=== PATIENT | female | born 1960 | race Caucasian/White ===

== ENCOUNTER → 2019-08-31 | Outpatient (REF) | payer BC | LOC: M LAB LCGH 11:16 | PROVIDERS: ATTEND Obstetrics & Gynecology | DX: Z12.4 Encounter for screening for malignant neoplasm of cervix (principal) | CPT/HCPCS: 87624; G0123 ==

== ENCOUNTER 2019-12-01 08:58 | Day surgery (SDC) | payer BC ==
[~2019-12-01] VITALS: Ht 162.6 cm; Wt 79.4 kg
[~2019-12-01 08:58] MED LIST: ADV100INH INH; ATEN50TA2 PO; BLAC540C3 PO; LEVO2TA PO; LIDOCAINE 2% INJ 100 MG/5 ML SDV (FOR ANES.) As Ordered ONE; LOSA100T50 PO; MULT-40 PO; NS 1,000 ML IV ONE; OMEP40CA97 PO; VENTAER INH; propofoL 200 MG/20 ML VIAL As Ordered ONE
[2019-12-01] MEDS ORDERED: propofoL 200 MG/20 ML VIAL As Ordered ONE (10:40)
--- NOTE | 2019-12-01 10:54 | ROOR ---
Patient Name: Erin Beth Procedure Date: 12/01/2019 10:27 AM Date of : 1960 Age: 59 Room: [facility] Gender: Female Note Status: Finalized Procedure: Colonoscopy Indications: Suspected diverticulosis of the colon Providers: DO Oscar Cifuentes MD: ONEYDA Kramer Requesting Provider: Medicines: Propofol per Anesthesia Complications: No immediate complications. Procedure: Pre-Anesthesia Assessment: - Prior to the procedure, a History and Physical was performed, and patient medications and allergies were reviewed. The patient is competent. The risks and benefits of the procedure and the sedation options and risks were discussed with the patient. All questions were answered and informed consent was obtained. Patient identification and proposed procedure were verified by the physician, the nurse, the anesthesiologist and the laboratory mechanical technician in the endoscopy suite. Mental Status Examination: alert and oriented. Airway Examination: normal oropharyngeal airway and neck mobility. Respiratory Examination: clear to auscultation. CV Examination: normal. Prophylactic Antibiotics: The patient does not require prophylactic antibiotics. Prior Anticoagulants: The patient has taken no previous anticoagulant or antiplatelet agents. ASA Grade Assessment: II - A patient with mild systemic disease. After reviewing the risks and benefits, the patient was deemed in satisfactory condition to undergo the procedure. The anesthesia plan was to use monitored anesthesia care (MAC). Immediately prior to administration of medications, the patient was re-assessed for adequacy to receive sedatives. The heart rate, respiratory rate, oxygen saturations, blood pressure, adequacy of pulmonary ventilation, and response to care were monitored throughout the procedure. The physical status of the patient was re-assessed after the procedure. The Colonoscope was introduced through the anus and advanced to the cecum, identified by appendiceal orifice and ileocecal valve. The colonoscopy was performed without difficulty. The patient tolerated the procedure well. Findings: A few small-mouthed diverticula were found in the sigmoid colon and ascending colon. Non-bleeding internal hemorrhoids were found during retroflexion. The hemorrhoids were Grade I (internal hemorrhoids that do not prolapse). The exam was otherwise without abnormality on direct and retroflexion views. Impression: - Diverticulosis in the sigmoid colon and in the ascending colon. - Non-bleeding internal hemorrhoids. - The examination was otherwise normal on direct and retroflexion views. - No specimens collected. Recommendation: - Patient has a contact number available for emergencies. The signs and symptoms of potential delayed complications were discussed with the patient. Return to normal activities tomorrow. Written discharge instructions were provided to the patient. - Repeat colonoscopy in 5-10 years for screening purposes. - Return to my office PRN. Juan Edwards DO 12/01/2019 10:53:53 AM Electronically signed by Juan Edwards DO Number of Addenda: 0 Note Initiated On: 12/01/2019 10:27 AM Estimated Blood Loss: Estimated blood loss: none.
[2019-12-01 11:28] VITALS: BP 160/70
== END 2019-12-01 11:32 | disposition home or self-care (01) ==
LOC: M OPP 08:58
PROVIDERS: ATTEND Surgery
DX: K64.0 First degree hemorrhoids (principal); K57.30 Diverticulosis of large intestine without perforation or abscess without bleeding; R10.32 Left lower quadrant pain; K82.8 Other specified diseases of gallbladder; I10 Essential (primary) hypertension; E03.9 Hypothyroidism, unspecified; Z79.899 Other long term (current) drug therapy; Z88.5 Allergy status to narcotic agent; Z91.040 Latex allergy status

== ENCOUNTER → 2020-11-15 | Outpatient (CLI) | payer BC ==
[~2020-11-15] MED LIST changes: -LIDOCAINE 2% INJ 100 MG/5 ML SDV (FOR ANES.) As Ordered ONE; -NS 1,000 ML IV ONE; +SYNT112T2 PO; -propofoL 200 MG/20 ML VIAL As Ordered ONE
== END ==
LOC: M LABSMTC 10:43
PROVIDERS: ATTEND Anesthesiology
DX: Z01.812 Encounter for preprocedural laboratory examination (principal); Z20.822 Contact with and (suspected) exposure to COVID-19

== ENCOUNTER 2020-11-20 07:34 | Day surgery (SDC) | payer BC ==
[~2020-11-20] VITALS: Ht 162.6 cm; Wt 80.6 kg
[~2020-11-20 07:34] MED LIST changes: +LR 1,000 ML IV ONE
[2020-11-20] MEDS ORDERED: fentaNYL 250 MCG/5 ML INJECTION (J3010) As Ordered ONE (07:56)
[2020-11-20] MEDS ORDERED: propofoL 200 MG/20 ML VIAL As Ordered ONE ×2 (07:56→10:01)
[2020-11-20] MEDS ORDERED: LIDOCAINE 2% 100MG/5ML SDV (FOR ANES.) As Ordered ONE (07:56)
[2020-11-20] MEDS ORDERED: MIDAZOLAM INJ 2MG/2ML VIAL (J2250 PER 1MG) As Ordered ONE (07:56)
[2020-11-20] MEDS ORDERED: ROCURONIUM BROMIDE 50 MG/5 ML VIAL As Ordered ONE (07:56)
[2020-11-20] MEDS ORDERED: dexameTHASONE 4 MG/ML 1ML VIAL (J1100 PER 1MG) As Ordered ONE (07:57)
[2020-11-20] MEDS ORDERED: ONDANSETRON 4MG/2ML VIAL As Ordered ONE (07:57)
[2020-11-20] MEDS ORDERED: KETOROLAC 60MG 2ML VIAL As Ordered ONE (07:57)
[2020-11-20] MEDS ORDERED: ACETAMINOPHEN 1000MG 100ML IV BTL (OFIRMEV) (J0131 PER 10MG) As Ordered ONE ×2 (08:10→09:19)
[2020-11-20] MEDS ORDERED: BUPIVACAINE/EPIN 0.25% 30 ML VIAL As Ordered ONE (08:48)
[2020-11-20] MEDS ORDERED: ePHEDrine SULFATE 25 MG/5 ML(5MG/ML) SYRINGE As Ordered ONE (09:18)
[2020-11-20] MEDS ORDERED: GLYCOPYRROLATE INJ 0.2 MG/ML 2 ML VIAL As Ordered ONE (09:23)
[2020-11-20] MEDS ORDERED: METOCLOPRAMIDE INJ 10MG/2ML VIAL (J2765 PER 1) As Ordered ONE (09:36)
[2020-11-20] MEDS ORDERED: SUGAMMADEX SODIUM 500 MG/5 ML VIAL (BRIDION) As Ordered ONE (09:51)
[2020-11-20] MEDS ORDERED: oxyCODONE 5MG TAB PO PRN (10:30)
[2020-11-20] MEDS ORDERED: fentaNYL 100 MCG/2 ML INJECTION (J3010) IV PRN (10:30)
[2020-11-20] MEDS ORDERED: LR 1,000 ML IV SCH (10:30)
[2020-11-20] MEDS ORDERED: ONDANSETRON 4MG/2ML VIAL IV PRN (10:30)
[2020-11-20] MEDS ORDERED: HYDROMORPHONE HCL 0.5 MG/ 0.5 ML SYRINGE (J1170 PER 1) IV PRN (10:30)
[2020-11-20] MEDS ORDERED: NORCO, ANEXSIA 5/325MG TABLET (HYDROcodone/ACETAMINOPHEN) PO PRN (10:35)
--- NOTE | 2020-11-20 10:58 | RO ---
OPERATIVE NOTE DATE OF OPERATION: 11/20/2020 PREOPERATIVE DIAGNOSIS: Biliary dyskinesia. POSTOPERATIVE DIAGNOSIS: Biliary dyskinesia. PROCEDURE: Robotic cholecystectomy. SURGEON: Juan Edwards DO MAINTENANCE TECH: Jalyn Mayer ANESTHESIA: General. EBL: 5 mL. COMPLICATIONS: None. INDICATIONS FOR PROCEDURE: The patient is a 60-year-old female who presents with right upper quadrant pain. She was found to have an abnormal HIDA with ejection fraction of 11%. Due to her symptoms and abnormal HIDA, recommendation was to proceed with robotic cholecystectomy. Risks and benefits of the procedure, not limited to but including bleeding, infection, hernia formation, damage to surrounding structures, and need for further surgery were discussed in detail with the patient. Informed consent was obtained and procedure was planned. PROCEDURE: The patient was brought back to operating room 7. After sufficient sedation, the abdomen was sterilely prepped and draped. Next, time out was done to confirm proper patient and proper procedure. Following that, an 8-mm incision was made in left upper quadrant, Veress needle was inserted, and the abdomen was insufflated to 15 mmHg. The Veress needle was then removed and an 8-mm Optiview port was used to gain access to the abdomen. Once the abdomen was entered, three more ports were placed, two in the right upper abdomen and one in the right upper quadrant. Next, the fundus of the gallbladder was elevated up towards the right shoulder. Cystic duct and cystic artery were carefully dissected free using a combination of blunt and sharp dissection. Once they were both clearly identified, they were both doubly clipped and cut. The gallbladder was then dissected free from the gallbladder fossa, placed intact inside of a 5-mm EndoCatch bag, and then brought out through the right lateral port site. Once the gallbladder was removed, the abdomen was desufflated. The skin incisions were closed with 4-0 Vicryl subcuticular sutures. The abdomen was cleaned and dried. Steri-Strips, 4 x 4, and tape were applied.
[2020-11-20 13:10] VITALS: BP 153/70
== END 2020-11-20 12:02 | disposition home or self-care (01) ==
LOC: M SDC 07:34
PROVIDERS: ATTEND Surgery
DX: K82.8 Other specified diseases of gallbladder (principal); I10 Essential (primary) hypertension; K21.9 Gastro-esophageal reflux disease without esophagitis; Z79.899 Other long term (current) drug therapy; E03.9 Hypothyroidism, unspecified; L40.9 Psoriasis, unspecified
CPT/HCPCS: 47562; 88304; J0131; J1100; J1885; J2250; J2405; J2765; J3010; S2900

== ENCOUNTER → 2023-10-30 | Outpatient (REF) | payer BC, OTHER ==
[~2023-10-30] MED LIST changes: +LOSA100T46 PO; -LOSA100T50 PO; -LR 1,000 ML IV ONE; +OMEP40CA4 PO; -OMEP40CA97 PO
== END ==
LOC: M SFHCDERM 13:33
PROVIDERS: ATTEND Physician Assistant
DX: C44.311 Basal cell carcinoma of skin of nose (principal); C44.319 Basal cell carcinoma of skin of other parts of face